=== PATIENT | female | born 1965 | race Caucasian/White ===

== ENCOUNTER 2018-01-23 15:06 | Inpatient (IN) | payer MEDICARE, MEDICAID ==
[2018-01-23] MEDS ORDERED: Sodium Chloride 0.9% 5 ML Syringe FLUSH PRN (15:15)
[2018-01-23] MEDS ORDERED: Ondansetron 4 MG/2 ML SDV IVPUSH PRN (15:32)
[2018-01-23] MEDS: cefTRIAXone 2 GM Vial IVPUSH SCH (16:45)
[2018-01-23 16:50] LABS: CHLORIDE,CL 103 mmol/L (98-115); SODIUM,NA 139 mmol/L (136-145)
[2018-01-23] MEDS ORDERED: Phenazopyridine 100 MG Tab PO PRN (17:16)
[2018-01-23] MEDS ORDERED: Acetaminophen 500 MG Tab PO PRN (17:44)
[2018-01-23] MEDS ORDERED: ALBUTEROL 108 MCG INH PRN (17:44)
[2018-01-23] MEDS ORDERED: Gabapentin 300 MG Cap PO PRN (17:54)
[2018-01-23] MEDS: Sodium Chloride 0.9% 1,000 ML IV SCH (17:59)
[2018-01-23] MEDS: Nicotine 7 MG/24 Hr Patch TRDERM SCH (18:36)
[2018-01-23] MEDS: Sertraline 50 MG Tab PO SCH (18:39)
[2018-01-23] MEDS ORDERED: Ketorolac 30 MG/ML SDV IVPUSH ONE (20:07)
[2018-01-23] MEDS ORDERED: Non-Formulary Medication 1 Each (Atorvastatin [Lipitor] 20 MG) PO SCH (21:00)
[2018-01-23] MEDS: ALPRAZolam 0.25 MG Tab PO PRN (21:35)
[2018-01-24] MEDS: Sodium Chloride 0.9% 1,000 ML IV SCH ×2 (02:06→14:32)
[2018-01-24] MEDS: Ketorolac 30 MG/ML SDV IVPUSH PRN ×4 (02:43→21:40)
[2018-01-24] MEDS ORDERED: CALCIUM CARBONATE 1500 MG PO SCH (07:30)
[2018-01-24] MEDS: Aspirin 81 MG Tab.EC PO SCH (08:29)
[2018-01-24] MEDS: Nicotine 7 MG/24 Hr Patch TRDERM SCH (08:30)
[2018-01-24] MEDS ORDERED: Non-Formulary Medication 1 Each (Cholecalciferol (Vitamin D3) [Vitamin D3] 1 TAB) PO SCH (09:00)
[2018-01-24] MEDS ORDERED: TERIPARATIDE 20 MCG SQ SCH (09:00)
--- NOTE | 2018-01-24 10:25 | PCM.PN ---
- General Info Date of Service: 01/24/18 Admission Dx/Problem (Free Text): Pt was admitted to the hospital from the clinic 01/23/18 with left lower quadrant abdominal pain radiating to the left flank area, nausea and decreased appetite. She had been treated for 3 days with Zpak just prior to that clinic visit. On admission her pain was getting worse. Stated the pain "felt like having a baby." [place] feverish at home but no measured temp. Urine Culture showed EColi > 100,000 colonies and WBC on 01/20/18 was 16.1 with left shift. She was admitted on IV rocephin 1 gm q 24 hrs. Throughout the evening the pain continued to get worse. CT of abdomen and pelvis showed Minimal prominence bilateral proximal to mid ureters with slight [place]-ureteral fat stranding. Findings suspicious for UTI. There were no obstructing stones. She was given gabapentin 300 mg x 1 without much relief, toradal 30 mg IV which she states did give relief. Subjective Update: This morning pt reports she is feeling much better. No further nausea. She is asking for diet advance. She reports she does continue with some left groin pain with some radiation to the left lateral abdomen. Functional Status: Reports: Pain Controlled, Tolerating Diet, Urinating (Pt reports she is voiding, but doesn't feel an urge to void.) - Review of Systems General: Reports: Other (appetite improved). Denies: Fever, Weakness Pulmonary: Reports: No Symptoms Cardiovascular: Reports: No Symptoms Gastrointestinal: Reports: Decreased Appetite (improved), Nausea (improved), Vomiting Genitourinary: Reports: No Symptoms. Denies: Dysuria (dysuria has resolved) Musculoskeletal: Reports: No Symptoms Neurological: Reports: No Symptoms Psychiatric: Reports: Anxiety (chronic anxiety for which she uses Xanax at ) - Patient Data Vitals - Most Recent: Last Vital Signs Temp 98.3 F 01/24/18 06:08 Pulse 63 01/24/18 06:08 Resp 18 01/24/18 06:08 BP 120/66 01/24/18 06:08 Pulse Ox 94 L 01/24/18 06:08 Weight - Most Recent: 175 lb 8 oz I&O - Last 24 Hours: Intake & Output 01/23/18 01/24/18 01/24/18 22:59 06:59 14:59 Intake Total 2269 796 Output Total 1150 300 Balance 1119 496 Imaging Impressions - Last 24 Hours: CT pelvis and abdomen: Minimal prominence of bilateral proximal to mid ureters with slight [place]-ureteral fat stranding. Findings suspicious for UTI. There were no obstructing stones. Lab Results Last 24 Hours: Laboratory Results - last 24 hr 01/23/18 01/23/18 01/23/18 Range/Units 15:25 16:25 16:25 WBC 12.0 H (5.0-10.0) 10^3/uL RBC 4.37 (3.80-5.50) 10^6/uL Hgb 14.2 (12.0-16.0) g/dL Hct 40.3 (37.0-47.0) % MCV 92.0 (82.0-92.0) fL MCH 32.5 H (27.0-31.0) pg MCHC 35.3 (32.0-36.0) g/dL RDW 12.9 (11.5-14.5) % Plt Count 238 (150-300) 10^3/uL MPV 7.7 (7.4-10.4) fL Neut % (Auto) 56.3 (50.0-70.0) % Lymph % (Auto) 34.0 (20.0-40.0) % [place] % (Auto) 3.8 (2.0-8.0) % Eos % (Auto) 5.3 H (1.0-3.0) % Baso % (Auto) 0.6 (0.0-1.0) % Neut # (Auto) 6.7 (2.5-7.0) 10^3/uL Lymph # (Auto) 4.1 H (1.0-4.0) 10^3/uL [place] # (Auto) 0.5 (0.1-0.8) 10^3/uL Eos # (Auto) 0.6 H (0.1-0.3) 10^3/uL Baso # (Auto) 0.1 (0.0-0.1) 10^3/uL ESR (0-20) mm/hr Sodium 139 (136-145) mmol/L Potassium 3.9 (3.3-5.3) mmol/L Chloride 103 (98-115) mmol/L Carbon Dioxide 27.4 (21.0-32.0) mmol/L BUN 11 (6-25) mg/dL Creatinine 0.80 (0.51-1.17) mg/dL Est Cr Clr Drug Dosing 79.08 mL/min Estimated GFR (MDRD) > 60 mL/min Glucose 88 (70-110) mg/dL Calcium 9.2 (8.7-10.3) mg/dL Total Bilirubin 0.3 (0.2-1.0) mg/dL AST 15 (15-37) U/L ALT 19 (12-78) U/L Alkaline Phosphatase 74 (46-116) IU/L Total Protein 7.4 (6.4-8.2) g/dL Albumin 3.59 (3.00-4.80) g/dL Specimen Type Urincc Urine Color Yellow (YELLOW) Urine Appearance Slightly cloudy H (CLEAR) Urine pH 5.0 (5.0-9.0) Ur Specific [place] <= 1.005 (1.005-1.030) Urine Protein Negative (NEGATIVE) mg/dL Urine Glucose (UA) Negative (NEGATIVE) mg/dL Urine Ketones Negative (NEGATIVE) mg/dL Urine Occult Blood Moderate H (NEGATIVE) Urine Nitrite Positive H (NEGATIVE) Urine Bilirubin Negative (NEGATIVE) Urine Urobilinogen 0.2 (0.2-1.0) E.U./dL Ur Leukocyte Esterase Small H (NEGATIVE) 01/23/18 01/24/18 Range/Units 16:25 07:00 WBC 7.7 (5.0-10.0) 10^3/uL RBC 4.28 (3.80-5.50) 10^6/uL Hgb 13.4 (12.0-16.0) g/dL Hct 39.6 (37.0-47.0) % MCV 92.6 H (82.0-92.0) fL MCH 31.2 H (27.0-31.0) pg MCHC 33.7 (32.0-36.0) g/dL RDW 12.9 (11.5-14.5) % Plt Count 204 (150-300) 10^3/uL MPV 8.2 (7.4-10.4) fL Neut % (Auto) 68.3 (50.0-70.0) % Lymph % (Auto) 17.0 L (20.0-40.0) % [place] % (Auto) 5.4 (2.0-8.0) % Eos % (Auto) 8.5 H (1.0-3.0) % Baso % (Auto) 0.8 (0.0-1.0) % Neut # (Auto) 5.2 (2.5-7.0) 10^3/uL Lymph # (Auto) 1.3 (1.0-4.0) 10^3/uL [place] # (Auto) 0.4 (0.1-0.8) 10^3/uL Eos # (Auto) 0.7 H (0.1-0.3) 10^3/uL Baso # (Auto) 0.1 (0.0-0.1) 10^3/uL ESR 30 H (0-20) mm/hr Sodium (136-145) mmol/L Potassium (3.3-5.3) mmol/L Chloride (98-115) mmol/L Carbon Dioxide (21.0-32.0) mmol/L BUN (6-25) mg/dL Creatinine (0.51-1.17) mg/dL Est Cr Clr Drug Dosing mL/min Estimated GFR (MDRD) mL/min Glucose (70-110) mg/dL Calcium (8.7-10.3) mg/dL Total Bilirubin (0.2-1.0) mg/dL AST (15-37) U/L ALT (12-78) U/L Alkaline Phosphatase (46-116) IU/L Total Protein (6.4-8.2) g/dL Albumin (3.00-4.80) g/dL Specimen Type Urine Color (YELLOW) Urine Appearance (CLEAR) Urine pH (5.0-9.0) Ur Specific [place] (1.005-1.030) Urine Protein (NEGATIVE) mg/dL Urine Glucose (UA) (NEGATIVE) mg/dL Urine Ketones (NEGATIVE) mg/dL Urine Occult Blood (NEGATIVE) Urine Nitrite (NEGATIVE) Urine Bilirubin (NEGATIVE) Urine Urobilinogen (0.2-1.0) E.U./dL Ur Leukocyte Esterase (NEGATIVE) Med Orders - Current: Current Medications Acetaminophen (Tylenol Extra Strength) 500 mg PO Q4HR PRN PRN Reason: Pain Alprazolam (Xanax) 0.5 mg PO Q8HR PRN PRN Reason: Anxiety Last Admin: 01/23/18 21:35 Dose: 0.5 mg Aspirin (Halfprin) 81 mg PO DAILY [facility] Last Admin: 01/24/18 08:29 Dose: 81 mg Ceftriaxone Sodium (Rocephin) 2 gm IVPUSH Q24H [facility] Last Admin: 01/23/18 16:45 Dose: 2 gm Gabapentin (Neurontin) 300 mg PO TID PRN PRN Reason: Pain Last Admin: 01/23/18 18:36 Dose: 300 mg Sodium Chloride (Normal Saline) 1,000 mls @ 80 mls/hr IV ASDIRECTED [facility] Last Admin: 01/24/18 02:06 Dose: 80 mls/hr Ketorolac Tromethamine (Toradol) 15 mg IVPUSH Q6H PRN PRN Reason: Pain Stop: 01/27/18 02:31 Last Admin: 01/24/18 08:28 Dose: 15 mg Nicotine (Habitrol) 7 mg TRDERM DAILY [facility] Last Admin: 01/24/18 08:30 Dose: 7 mg Non-Formulary Medication (Albuterol [Ventolin 2 Mg/5 Ml]) 108 mcg INH ASDIRECTED PRN PRN Reason: Shortness of Breath Ondansetron HCl (Zofran) 4 mg IVPUSH Q4H PRN PRN Reason: Nausea/Vomiting Phenazopyridine HCl (Pyridium) 100 mg PO BID PRN PRN Reason: bladder pain Stop: 01/24/18 23:59 Last Admin: 01/23/18 17:47 Dose: 100 mg Sertraline HCl (Zoloft) 50 mg PO BEDTIME [facility] Sodium Chloride (Syrex Flush) 5 ml FLUSH Q8HR PRN PRN Reason: Keep Vein Open Discontinued Medications Sodium Chloride (Normal Saline) 1,400 mls @ 999 mls/hr IV ASDIRECTED [facility] Stop: 01/23/18 17:00 Last Admin: 01/23/18 16:45 Dose: 999 mls/hr Ketorolac Tromethamine (Toradol) 30 mg IVPUSH ONETIME ONE Stop: 01/23/18 20:08 Last Admin: 01/23/18 20:47 Dose: 30 mg Non-Formulary Medication (Atorvastatin [Lipitor]) 20 mg PO BEDTIME [facility] Non-Formulary Medication (Calcium Carbonate [Calcium Carbonate]) 1,500 mg PO ACBREAKFAST [facility] Non-Formulary Medication (Cholecalciferol (Vitamin D3) [Vitamin D3]) 1 tab PO DAILY [facility] Non-Formulary Medication (Teriparatide [Forteo]) 20 mcg SQ DAILY [facility] Sertraline HCl (Zoloft) 50 mg PO DAILY [facility] Last Admin: 01/23/18 18:39 Dose: 50 mg - Problem List Review Problem List Initiated/Reviewed/Updated: Yes - My Orders Last 24 Hours: My Active Orders 01/23/18 17:44 ALPRAZolam [Xanax] 0.5 mg PO Q8HR PRN Acetaminophen [Tylenol Extra Strength] 500 mg PO Q4HR PRN Albuterol [Ventolin 2 MG/5 ML] 108 mcg INH ASDIRECTED PRN 01/23/18 17:54 Gabapentin [Neurontin] 300 mg PO TID PRN 01/23/18 18:00 Nicotine [Habitrol] 7 mg TRDERM DAILY 01/23/18 20:12 Strain Urine [RC] ASDIRECTED 01/23/18 20:45 Abdomen Pelvis wo Cont [CT] Routine 01/24/18 02:30 Ketorolac [Toradol] 15 mg IVPUSH Q6H PRN 01/24/18 09:00 Aspirin [Halfprin] 81 mg PO DAILY 01/24/18 21:00 Sertraline [Zoloft] 50 mg PO BEDTIME 01/24/18 Breakfast GI Soft Low Fiber [Soft Diet] [DIET] 01/24/18 Lunch [place] Diet [DIET] - Assessment Assessment:: Assessment/Plan 1. Acute pyelonephritis: EColi treated with Rocephin 1 gm IV q 24 hrs. Pt feeling much better. Nausea resolved. Voiding without dysuria. Does continue with left lower quadrant abdominal pain that is improving. Currently pain is managed with toradal and tylenol. 2. Smoker: Pt smokes about 5 cigarettes a day. She is on a nicoderm patch 7 mcg. She uses an albuterol inhaler prn. Pt is interested in quitting after hospital discharge. 3. Depression: continue zoloft 100 mg daily. 4. Insomnia with anxiety: May use Xanax prn at for insomnia 5. osteoporosis: hold forteo, calcium and vitamin D while in hospital for short term.
[2018-01-24] MEDS: Sertraline 50 MG Tab PO SCH (15:23)
[2018-01-24] MEDS: cefTRIAXone 2 GM Vial IVPUSH SCH (15:39)
[2018-01-24] MEDS ORDERED: Sertraline 50 MG Tab PO SCH (21:00)
[2018-01-24] MEDS: ALPRAZolam 0.25 MG Tab PO PRN (21:39)
[2018-01-25] MEDS: Sodium Chloride 0.9% 1,000 ML IV SCH (03:10)
[2018-01-25] MEDS: Aspirin 81 MG Tab.EC PO SCH (08:58)
[2018-01-25] MEDS: Nicotine 7 MG/24 Hr Patch TRDERM SCH (08:58)
[2018-01-25] MEDS: cefTRIAXone 2 GM Vial IVPUSH SCH (10:57)
--- NOTE | 2018-01-25 11:14 | PCM.DCSUM1 ---
Discharge Summary - Hospital Course HPI Initial Comments: Pt was admitted to the hospital from the clinic 01/23/18 with left lower quadrant abdominal pain radiating to the left flank area, nausea and decreased appetite. She had been treated for 3 days with Zpak just prior to that clinic visit. On admission her pain was getting worse. Stated the pain "felt like having a baby." [place] feverish at home but no measured temp. Urine Culture showed EColi > 100,000 colonies and WBC on 01/20/18 was 16.1 with left shift. She was admitted and started on IV rocephin 1 gm q 24 hrs. Throughout the evening the pain continued to get worse. CT of abdomen and pelvis showed: Minimal prominence bilateral proximal to mid ureters with slight [place]-ureteral fat stranding. Findings suspicious for UTI. There were no obstructing stones. She was given gabapentin 300 mg x 1 without much relief, toradal 30 mg IV which did give relief. Pt has improved and states she is ready to go home after 3 doses of IV rocephin. She has no further dysuria or nausea She reports the pain to left lower abdomen into left flank area with palpation continues but is mild at time of discharge. Urine is clear [place]. WBC WNL without neutrophilia. Pt reports every time she gets antibiotics she gets a yeast infection and needs diflucan before antibiotic treatment and after. She did take a diflucan prior to starting Zpak and has another dose at home. I advised her to use the diflucan only if she experiences any yeast symptoms. Pt is a smoker. She was on nicoderm patch while in the clinic and wants to continue with smoking cessation. Nicoderm patch #30 rx was sent to [facility] per pt request. Pt has depression for which she takes zoloft 100 mg daily. this was continued in the hospital She has Insomnia with anxiety and uses xanax at hs. Pt has osteoporosis. Forteo, calcium and vitamin D were held while in the hospital. Diagnosis: Stroke: No - Discharge Data Discharge Date: 01/25/18 Discharge Disposition: Home, Self-Care 01 Condition: Good - Patient Instructions Diet: Regular Diet as Tolerated Activity: As Tolerated Driving: May Drive Today Showering/Bathing: May Shower Notify Provider of: Fever, Increased Pain, Nausea and/or Vomiting - Discharge Plan Prescriptions/Med Rec: Cephalexin [Keflex] 500 mg PO TID #30 capsule Home Medications: Home Meds Aspirin [Adult Low Dose Aspirin EC] 81 mg PO DAILY 01/18/14 [History] atorvaSTATin [Lipitor] 20 mg PO BEDTIME 01/18/14 [History] ALPRAZolam [Xanax] 1 tab PO Q8HR PRN 01/23/18 [History] Acetaminophen 500 mg PO Q4HR PRN 01/23/18 [History] Albuterol [Ventolin 2 MG/5 ML] 108 mcg INH ASDIRECTED PRN 01/23/18 [History] Calcium Carbonate 1,500 mg PO ACBREAKFAST 01/23/18 [History] Cholecalciferol (Vitamin D3) [Vitamin D3] 1 tab PO DAILY 01/23/18 [History] Fluconazole [Diflucan] 1 tab PO DAILY 01/23/18 [History] Sertraline [Zoloft] 50 mg PO DAILY 01/23/18 [History] Teriparatide [Forteo] 20 mcg SQ DAILY 01/23/18 [History] Cephalexin [Keflex] 500 mg PO TID #30 capsule 01/25/18 [Rx] Nicotine [Habitrol] 7 mg TRDERM DAILY patch 01/25/18 [Rx] Ondansetron [Zofran] 4 mg IVPUSH Q4H PRN vial 01/25/18 [Rx] Patient Handouts: Urinary Tract Infection, Adult, Pyelonephritis, Adult, Easy- to-Read Referrals: Edgar Fall, GUEST SERVICES MANAGER [Primary Care Provider] - (follow up with PCP in one week) - General Info Date of Service: 01/25/18 Admission Dx/Problem (Free Text: Pt was admitted to the hospital from the clinic 01/23/18 with left lower quadrant abdominal pain radiating to the left flank area, nausea and decreased appetite. She had been treated for 3 days with Zpak just prior to that clinic visit. On admission her pain was getting worse. Stated the pain "felt like having a baby." [place] feverish at home but no measured temp. Urine Culture showed EColi > 100,000 colonies and WBC on 01/20/18 was 16.1 with left shift. She was started on IV rocephin 1 gm q 24 hrs on admission. Throughout the evening the pain continued to get worse. CT of abdomen and pelvis showed Minimal prominence bilateral proximal to mid ureters with slight [place]-ureteral fat stranding. Findings suspicious for UTI. There were no obstructing stones. Subjective Update: This morning pt reports she is feeling much better. No further nausea. No further dysuria Left lower quadrant pain with palpation continues but is greatly improved. Functional Status: Reports: Pain Controlled, Tolerating Diet, Ambulating, Urinating - Review of Systems General: Reports: No Symptoms. Denies: Fever HEENT: Reports: No Symptoms Pulmonary: Reports: No Symptoms Cardiovascular: Reports: No Symptoms Gastrointestinal: Reports: No Symptoms Genitourinary: Reports: No Symptoms, Other (left lower abdomen into flank pain nearly resolved). Denies: Dysuria, Frequency, Burning, Pain, Urgency, Incontinence, Hematuria, Retention Skin: Reports: No Symptoms Neurological: Reports: No Symptoms Psychiatric: Reports: Other (chronic depression managed with zoloft) - Patient Data Vitals - Most Recent: Last Vital Signs Temp 97.6 F 01/25/18 06:14 Pulse 53 L 01/25/18 08:57 Resp 18 01/25/18 06:14 BP 134/82 01/25/18 08:57 Pulse Ox 96 01/25/18 06:14 Weight - Most Recent: 175 lb 8 oz I&O - Last 24 hours: Intake & Output 01/24/18 01/25/18 01/25/18 22:59 06:59 14:59 Intake Total 1027 786 Output Total 450 600 Balance 577 186 Lab Results - Last 24 hrs: Laboratory Results - last 24 hr 01/25/18 Range/Units 07:05 WBC 8.1 (5.0-10.0) 10^3/uL RBC 4.03 (3.80-5.50) 10^6/uL Hgb 12.6 (12.0-16.0) g/dL Hct 37.5 (37.0-47.0) % MCV 92.9 H (82.0-92.0) fL MCH 31.3 H (27.0-31.0) pg MCHC 33.7 (32.0-36.0) g/dL RDW 12.7 (11.5-14.5) % Plt Count 205 (150-300) 10^3/uL MPV 8.1 (7.4-10.4) fL Neut % (Auto) 64.2 (50.0-70.0) % Lymph % (Auto) 21.9 (20.0-40.0) % [place] % (Auto) 5.0 (2.0-8.0) % Eos % (Auto) 8.6 H (1.0-3.0) % Baso % (Auto) 0.3 (0.0-1.0) % Neut # (Auto) 5.2 (2.5-7.0) 10^3/uL Lymph # (Auto) 1.8 (1.0-4.0) 10^3/uL [place] # (Auto) 0.4 (0.1-0.8) 10^3/uL Eos # (Auto) 0.7 H (0.1-0.3) 10^3/uL Baso # (Auto) 0.0 (0.0-0.1) 10^3/uL Med Orders - Current: Current Medications Acetaminophen (Tylenol Extra Strength) 500 mg PO Q4HR PRN PRN Reason: Pain Alprazolam (Xanax) 0.5 mg PO Q8HR PRN PRN Reason: Anxiety Last Admin: 01/24/18 21:39 Dose: 0.5 mg Aspirin (Halfprin) 81 mg PO DAILY [facility] Last Admin: 01/25/18 08:58 Dose: 81 mg Ceftriaxone Sodium (Rocephin) 2 gm IVPUSH Q24H [facility] Last Admin: 01/25/18 10:57 Dose: 2 gm Gabapentin (Neurontin) 300 mg PO TID PRN PRN Reason: Pain Last Admin: 01/23/18 18:36 Dose: 300 mg Sodium Chloride (Normal Saline) 1,000 mls @ 80 mls/hr IV ASDIRECTED [facility] Last Admin: 01/25/18 03:10 Dose: 80 mls/hr Ketorolac Tromethamine (Toradol) 15 mg IVPUSH Q6H PRN PRN Reason: Pain Stop: 01/27/18 02:31 Last Admin: 01/24/18 21:40 Dose: 15 mg Nicotine (Habitrol) 7 mg TRDERM DAILY [facility] Last Admin: 01/25/18 08:58 Dose: 7 mg Non-Formulary Medication (Albuterol [Ventolin 2 Mg/5 Ml]) 108 mcg INH ASDIRECTED PRN PRN Reason: Shortness of Breath Ondansetron HCl (Zofran) 4 mg IVPUSH Q4H PRN PRN Reason: Nausea/Vomiting Last Admin: 01/25/18 06:22 Dose: 4 mg Sertraline HCl (Zoloft) 50 mg PO BEDTIME [facility] Last Admin: 01/24/18 22:21 Dose: 50 mg Sodium Chloride (Syrex Flush) 5 ml FLUSH Q8HR PRN PRN Reason: Keep Vein Open Discontinued Medications Sodium Chloride (Normal Saline) 1,400 mls @ 999 mls/hr IV ASDIRECTED [facility] Stop: 01/23/18 17:00 Last Admin: 01/23/18 16:45 Dose: 999 mls/hr Ketorolac Tromethamine (Toradol) 30 mg IVPUSH ONETIME ONE Stop: 01/23/18 20:08 Last Admin: 01/23/18 20:47 Dose: 30 mg Non-Formulary Medication (Atorvastatin [Lipitor]) 20 mg PO BEDTIME [facility] Non-Formulary Medication (Calcium Carbonate [Calcium Carbonate]) 1,500 mg PO ACBREAKFAST [facility] Non-Formulary Medication (Cholecalciferol (Vitamin D3) [Vitamin D3]) 1 tab PO DAILY [facility] Non-Formulary Medication (Teriparatide [Forteo]) 20 mcg SQ DAILY [facility] Phenazopyridine HCl (Pyridium) 100 mg PO BID PRN PRN Reason: bladder pain Stop: 01/24/18 23:59 Last Admin: 01/23/18 17:47 Dose: 100 mg Sertraline HCl (Zoloft) 50 mg PO DAILY [facility] Last Admin: 01/24/18 15:23 Dose: Not Given - Exam Quality Assessment: Denies: Supplemental Oxygen General: Reports: Alert, Oriented, Cooperative, No Acute Distress Lungs: Reports: Clear to Auscultation, Normal Respiratory Effort Cardiovascular: Reports: Regular Rate, Regular Rhythm GI/Abdominal Exam: Soft, No Distention, Other (mild tenderness with palpation of left lower quadrant radiating to left lateral abdomen) Extremities: No Pedal Edema Neurological: Reports: No New Focal Deficit Psy/Mental Status: Reports: Alert, Normal Affect, Normal Mood
== END 2018-01-25 11:25 | disposition home or self-care (01) | DRG 690 ==
LOC: KA.MS 15:06
PROVIDERS: ADMIT Nurse Practitioner Family; ATTEND Nurse Practitioner Family
DX: N10 Acute pyelonephritis (principal); F17.210 Nicotine dependence, cigarettes, uncomplicated; F32.9 Major depressive disorder, single episode, unspecified; G47.00 Insomnia, unspecified; F41.9 Anxiety disorder, unspecified; M81.0 Age-related osteoporosis without current pathological fracture; M19.90 Unspecified osteoarthritis, unspecified site; I73.9 Peripheral vascular disease, unspecified; E78.5 Hyperlipidemia, unspecified; Z88.1 Allergy status to other antibiotic agents; Z88.2 Allergy status to sulfonamides; Z88.5 Allergy status to narcotic agent; Z91.013 Allergy to seafood; Z79.82 Long term (current) use of aspirin; Z79.899 Other long term (current) drug therapy
CPT/HCPCS: 36415; 74176; 80053; 81003; 85025; 85651; A9270-GY; J0696; J1885; J2405; J7030

== ENCOUNTER 2019-09-29 19:34 | Observation (INO) | payer MEDICARE, MEDICAID ==
[2019-09-29 18:32] LABS: ANION GAP 16.2 mmol/L (5-15); CHLORIDE,CL 104 mmol/L (98-115); SODIUM,NA 143 mmol/L (136-145)
[2019-09-29] MEDS ORDERED: Atropine 0.1 MG/ML 10 ML Syringe IVPUSH PRN (19:38)
[2019-09-29] MEDS ORDERED: EPINEPHrine 1:10,000 1 MG/10 ML Syringe IVPUSH PRN (19:38)
[2019-09-29] MEDS ORDERED: Sodium Chloride 0.9% 10 ML Syringe FLUSH PRN (19:38)
[2019-09-29] MEDS ORDERED: Lidocaine 2% 100 MG/5 ML Syringe IVPUSH PRN (19:38)
[2019-09-29] MEDS ORDERED: Nitroglycerin 0.4 MG Tab.SL SL PRN (19:38)
[2019-09-29] MEDS ORDERED: Acetaminophen 500 MG Tab PO PRN (20:32)
[2019-09-29] MEDS ORDERED: Albuterol/Ipratropium 3.0-0.5 MG/3 ML Neb Soln NEB PRN (20:32)
[2019-09-29] MEDS ORDERED: Rosuvastatin 10 MG Tab PO SCH (21:00)
[2019-09-29] MEDS ORDERED: ALPRAZolam 0.25 MG Tab PO PRN (21:44)
[2019-09-29] MEDS ORDERED: Albuterol 8 GM Inhaler INH PRN (21:50)
[2019-09-29] MEDS: Calcium Carbonate 500 MG Tab.Chew PO SCH (23:00)
[2019-09-30] MEDS: Calcium Carbonate 500 MG Tab.Chew PO SCH (08:18)
[2019-09-30] MEDS ORDERED: TERIPARATIDE 20 MCG SQ SCH (09:00)
[2019-09-30] MEDS ORDERED: VILAZODONE 20 MG PO SCH (09:00)
[2019-09-30] MEDS ORDERED: Aspirin 81 MG Tab.EC PO SCH (09:00)
[2019-09-30] MEDS ORDERED: Multivitamins with Minerals/Iron/Folic Acid/Lycopene Tab PO SCH (09:00)
[2019-09-30] MEDS ORDERED: Cyanocobalamin (Vitamin B12) 500 MCG Tab PO SCH (09:00)
[2019-09-30] MEDS ORDERED: Cholecalciferol (Vitamin D3) 25 MCG Tab PO SCH (09:00)
--- NOTE | 2019-09-30 10:06 | PCM.DCSUM1 ---
Discharge Summary - Hospital Course Diagnosis: Stroke: No - Discharge Data Discharge Date: 09/30/19 Discharge Disposition: Home, Self-Care 01 Condition: Good - Referral to Home Health Primary Care Physician: Luz Harper NP - Patient Instructions Activity: As Tolerated Driving: May Drive Today Showering/Bathing: May Shower Notify Provider of: Increased Pain Other/Special Instructions: --Report any chest pain, lightheadedness. --I have placed a referral for Cardiology in [place], they will call you. --Echocardiogram /heart ultrasound and [facility]. --Smoking cessation very important as possible non-cardiac reasons for PVCs - Discharge Plan *PRESCRIPTION DRUG MONITORING PROGRAM REVIEWED*: Yes *COPY OF PRESCRIPTION DRUG MONITORING REPORT IN PATIENT LEVI: No (reviewed in EPIC; patient other EMR) Prescriptions/Med Rec: ALPRAZolam [Xanax] 1 mg PO Q8HR PRN #30 tablet PRN Reason: Anxiety Home Medications: Home Meds Aspirin [Adult Low Dose Aspirin EC] 162 mg PO DAILY 01/18/14 [History] Acetaminophen 500 - 1,000 mg PO Q4HR PRN 01/23/18 [History] Albuterol [Ventolin 2 MG/5 ML] 108 mcg INH ASDIRECTED PRN 01/23/18 [History] Calcium Carbonate 750 mg PO BID 01/23/18 [History] Cholecalciferol (Vitamin D3) [Vitamin D3] 1 tab PO DAILY 01/23/18 [History] Teriparatide [Forteo] 20 mcg SQ DAILY 01/23/18 [History] Albuterol/Ipratropium [DuoNeb 3.0-0.5 MG/3 ML] 3 ml NEB QID PRN 09/29/19 [ History] Cyanocobalamin (Vitamin B-12) [B-12] 1 tab PO DAILY 09/29/19 [History] Diclofenac Sodium 2 g TOP BID PRN 09/29/19 [History] Evolocumab [Repatha Sureclick] 140 mg SQ ASDIRECTED 09/29/19 [History] Fluticasone Propionate [Flonase] 1 spray TRISTON ASDIRECTED PRN 09/29/19 [History] Multivit-Min/Iron/Folic/Lutein [Multivitamin Women 50 Plus Tab] 1 tab PO DAILY 09/29/19 [History] Rosuvastatin Calcium 20 mg PO QPM 09/29/19 [History] Vilazodone [Viibryd] 20 mg PO DAILY 09/29/19 [History] ALPRAZolam [Xanax] 1 mg PO Q8HR PRN #30 tablet 09/30/19 [Rx] Referrals: Edgar Fall, HOBBER [Nurse Practitioner] - (next week anytime ) - Discharge Summary/Plan Comment DC Time >30 min.: Yes Discharge Summary/Plan Comment: Final diagnosis --Chest wall pain, non-specific, suggest MSK etiology --Sinus node dysfunction --PVCs, unifocal, bigeminy --Vascular disease --Tobacco dependency Chronic conditions --PVD- history of bilateral lower extremity angiogram and extensive intervention outlined in surgical history. Follow-up with interventional IR on with normal ABIs with exercise normal at rest with minimal if any decompensation post 5 minutes on the treadmill. ASA 162mg daily. --HLD- on crestor and Repatha --Osteoporosis- last DEXA october 2016. Osteoporosis of left femoral neck T score -2.8. History of compression injury and S/p Vertebroplasty of L3. On forteo on supplemental calcium and vitamin D. --Major depressive disorder, PTSD, and MARTHA- on Viibryd. Xanax PRN. --Bilateral Carotid artery disease. --Obesity. History summary Brandi is a 54-year-old female who is well-known to me was admitted into observation from [facility] due to chest pain and chest wall rib pain. Was admitted to rule out [facility]. Patient stated that night before she was trying to shut the door in her house when she pushed the door shut she felt like something "hit the left ribs." She does not think there was actually direct trauma but states it felt like there was. In the clinic when she was seen she did noted severe left rib pain, below the left breast, and chest wall pain that was reproducible on movement. She is also complained of some chest palpitations. She has noted intermittent increased shortness of breath since it happened and states it is hard to breath at times. Does have a history of high anxiety with history of PTSD and family dynamics in which her granddaughter had moved out of the state of her has just returned back. Patient does have osteoporosis and I have placed her on Forteo in which she continues to take. She does have significant peripheral vascular disease and is on PCSK9 along with statin therapy. 2 years ago I did have her placed on Holter monitor due to concerns of PVCs. She had no headache, dizziness, or lightheadedness. Patient is current smoker Pertinent clinical findings/work-up X-ray ribs, Official: Visualized lungs clear. No discrete rib fracture but low- dose technique limits evaluation. Subtle lucency marked with arrow on the oblique views could be tissue overlap as extends beyond the cortex and cannot be confirmed on other views. No pneumothorax. Hospital course Patient's overnight stay was quite uneventful however she was anxious the morning on rounds and strongly desired to be discharged. She no longer had any pains in her chest nor did has she had palpitations. Viewed overnight telemetry strips, frequent unifocal PVCs with evidence of trigeminy and bigeminy noted. No bradycardia, heart rate 70s 80s all night, no chest palpitations noted by patient. Troponin levels trended to normal. Last TSH April normal, Medication changes/adjustments upon discharge None Disposition/overall plan --Patient will be discharged from observation to home today. --Echocardiogram [facility], scheduled --Cardiology referral placed; likely candidate for ZIO Patch --Smoking cessation very important as possible non-cardiac reasons for PVCs --Will work up for possible PINO --TSH added to labs - General Info Functional Status: Reports: Pain Controlled, Tolerating Diet, Ambulating. Denies: New Symptoms - Review of Systems General: Denies: Fever, Weakness, Fatigue HEENT: Reports: No Symptoms Pulmonary: Reports: No Symptoms Cardiovascular: Reports: No Symptoms Gastrointestinal: Reports: No Symptoms Genitourinary: Reports: No Symptoms Musculoskeletal: Reports: No Symptoms Psychiatric: Reports: Agitation - Patient Data Vitals - Most Recent: Last Vital Signs Temp 95.9 F L 09/30/19 06:40 Pulse 78 09/30/19 06:40 Resp 18 09/30/19 06:40 BP 102/66 09/30/19 06:40 Pulse Ox 96 09/30/19 06:40 Weight - Most Recent: 185 lb 3 oz Lab Results - Last 24 hrs: Laboratory Results - last 24 hr 09/29/19 09/30/19 Range/Units 22:03 07:10 Troponin I 0.05 0.05 (0.00-0.070) ng/mL Med Orders - Current: Current Medications Acetaminophen (Tylenol Extra Strength) 500 - 1,000 mg PO Q8H PRN PRN Reason: Pain Last Admin: 09/29/19 23:01 Dose: 1,000 mg Albuterol (Ventolin Hfa) 0 gm INH Q4H PRN PRN Reason: Shortness of Breath/Wheezing Albuterol/Ipratropium (Duoneb 3.0-0.5 Mg/3 Ml) 3 ml NEB QID PRN PRN Reason: Shortness of Breath Alprazolam (Xanax) 1 mg PO Q8H PRN PRN Reason: Anxiety Last Admin: 09/29/19 23:01 Dose: 1 mg Aspirin (Halfprin) 162 mg PO DAILY [facility] Last Admin: 09/30/19 08:17 Dose: 162 mg Atropine Sulfate (Atropine 0.1 Mg/Ml) 0 mg IVPUSH ASDIRECTED PRN PRN Reason: Heart. Calcium Carbonate/Glycine (Tums) 750 mg PO BID [facility] Last Admin: 09/30/19 08:18 Dose: 750 mg Cholecalciferol (Vitamin D3) 50 mcg PO DAILY [facility] Last Admin: 09/30/19 08:17 Dose: 50 mcg Cyanocobalamin (Vitamin B12) 1,000 mcg PO DAILY [facility] Last Admin: 09/30/19 08:17 Dose: 1,000 mcg Epinephrine HCl (Epinephrine 1:10,000) 1 mg IVPUSH ASDIRECTED PRN PRN Reason: Heart. Lidocaine HCl (Xylocaine 2%) 0 mg IVPUSH ASDIRECTED PRN PRN Reason: Heart. Multivitamins/Minerals (Centrum) 1 tab PO DAILY [facility] Last Admin: 09/30/19 08:18 Dose: 1 tab Nitroglycerin (Nitrostat) 0.4 mg SL ASDIRECTED PRN PRN Reason: Heart. Non-Formulary Medication (Teriparatide [Forteo]) 20 mcg SQ DAILY [facility] Non-Formulary Medication (Vilazodone [Viibryd]) 20 mg PO DAILY [facility] Rosuvastatin Calcium (Crestor) 20 mg PO QPM [facility] Last Admin: 09/29/19 23:00 Dose: 20 mg Sodium Chloride (Saline Flush) 10 ml FLUSH Q8HR PRN PRN Reason: keep vein open - Exam Quality Assessment: Denies: Supplemental Oxygen General: Reports: Alert, Oriented, Mild Distress Neck: Reports: Supple Lungs: Reports: Clear to Auscultation, Normal Respiratory Effort Cardiovascular: Reports: Regular Rate, Bradycardia GI/Abdominal Exam: Normal Bowel Sounds, Soft (Female) Exam: Deferred Back Exam: Denies: CVA Tenderness (L), CVA Tenderness (R) Psy/Mental Status: Reports: Alert, Anxious
== END 2019-09-30 11:30 | disposition home or self-care (01) ==
LOC: KA.MS 19:34
PROVIDERS: ADMIT Nurse Practitioner Family; ATTEND Family Medicine
DX: R07.89 Other chest pain (principal); I49.5 Sick sinus syndrome; I49.3 Ventricular premature depolarization; R07.81 Pleurodynia; R06.02 Shortness of breath; R00.2 Palpitations; J44.9 Chronic obstructive pulmonary disease, unspecified; I99.9 Unspecified disorder of circulatory system; E78.49 Other hyperlipidemia; I73.9 Peripheral vascular disease, unspecified; M81.0 Age-related osteoporosis without current pathological fracture; F33.1 Major depressive disorder, recurrent, moderate; F43.10 Post-traumatic stress disorder, unspecified; F41.1 Generalized anxiety disorder; I65.23 Occlusion and stenosis of bilateral carotid arteries; M19.90 Unspecified osteoarthritis, unspecified site; F17.200 Nicotine dependence, unspecified, uncomplicated; E66.9 Obesity, unspecified; Z68.30 Body mass index [BMI] 30.0-30.9, adult; Z79.51 Long term (current) use of inhaled steroids; Z79.82 Long term (current) use of aspirin; Z79.899 Other long term (current) drug therapy; Z88.5 Allergy status to narcotic agent; Z88.2 Allergy status to sulfonamides; Z91.013 Allergy to seafood; Z88.1 Allergy status to other antibiotic agents; Z98.890 Other specified postprocedural states
CPT/HCPCS: 36415; 80048; 83735; 84443; 84484; 85025; 85651; A9270; G0378

== ENCOUNTER 2020-07-27 17:44 | Emergency (ER) | payer MEDICARE, MEDICAID ==
[2020-07-27 18:48] LABS: ANION GAP 13.7 mmol/L (5-15); CHLORIDE,CL 102 mmol/L (98-115); SODIUM,NA 139 mmol/L (136-145)
--- NOTE | 2020-07-27 18:56 | CR ---
[id number] RAD/RAD Chest PA or AP 1V EXAM: RAD Chest PA or AP 1V INDICATION: CHEST PRESSURE. COMPARISON: None. DISCUSSION: Cardiomediastinal silhouette is normal in size and contour. No infiltrate, effusion, pneumothorax, or edema. Pulmonary hyperinflation. IMPRESSION: No acute cardiopulmonary abnormality. Kurt Estevez DO 07/27/20 0414 Thank you for allowing us to participate in the care of your patient.
[2020-07-27] MEDS ORDERED: Albuterol/Ipratropium 3.0-0.5 MG/3 ML Neb Soln NEB ONE (19:26)
--- NOTE | 2020-07-27 19:30 | EDM.PDOC ---
ED HPI GENERAL MEDICAL PROBLEM - General Chief Complaint: Respiratory Problem Stated Complaint: SHORTNESS OF BREATH Time Seen by Provider: 07/27/20 18:05 Source of Information: Reports: Patient, RN History Limitations: Reports: No Limitations - History of Present Illness INITIAL COMMENTS - FREE TEXT/NARRATIVE: 55-year-old female presents emergency room with complaints of burning chest pressure and shortness of breath. She was seen in the last 48 hours by her medical provider and started on a oral steroid for bronchitis. She has been doing an albuterol inhaler but states that she does not have any of the stuff necessary for her nebulizers at home tubing or medication. She is a current smoker has been for many years known history for COPD. She feels sweaty has not been running fevers. She denies any nausea or vomiting. No productive cough. She had a rapid Covid test at her visit then was negative. She was at home alone. She called the clinic today complaining of chest pressure that that she has been having as well as burning and they recommended that she be evaluated in the emergency room. Onset: Gradual Onset Date: 07/25/20 Duration: Day(s):, Constant Location: Reports: Chest Quality: Reports: Burning Severity: Moderate Improves with: Reports: None Worsens with: Reports: None Associated Symptoms: Reports: Shortness of Breath. Denies: Chest Pain, Cough, Fever/Chills, Nausea/Vomiting Treatments ORDER ANALYST: Reports: Other (see below) (steroids oral ) Chest Pain Score (Numeric/FACES): 4 - Related Data Allergies Allergy/AdvReac Type Severity Reaction Status Date / Time oyster extract Allergy Severe Difficulty Verified 07/27/20 19:13 Breathing amoxicillin Allergy Mild Nausea Verified 07/27/20 19:13 codeine Allergy Unknown Cannot Verified 07/27/20 19:13 Remember Sulfa (Sulfonamide Allergy Cannot Verified 07/27/20 19:13 Antibiotics) Remember Home Meds: Home Meds Aspirin [Adult Low Dose Aspirin EC] 162 mg PO DAILY 01/18/14 [History] Acetaminophen 500 - 1,000 mg PO Q4HR PRN 01/23/18 [History] Albuterol [Ventolin 2 MG/5 ML] 2 puff INH Q4H PRN 01/23/18 [History] Calcium Carbonate 1,968.75 mg PO BID 01/23/18 [History] Cholecalciferol (Vitamin D3) [Vitamin D3] 1 tab PO DAILY 01/23/18 [History] Teriparatide [Forteo] 20 mcg SQ DAILY 01/23/18 [History] Albuterol/Ipratropium [DuoNeb 3.0-0.5 MG/3 ML] 3 ml NEB QID PRN 09/29/19 [History] Cyanocobalamin (Vitamin B-12) [B-12] 1 tab PO DAILY 09/29/19 [History] Diclofenac Sodium 2 g TOP BID PRN 09/29/19 [History] Evolocumab [Repatha Sureclick] 140 mg SQ ASDIRECTED 09/29/19 [History] Fluticasone Propionate [Flonase] 1 spray TRISTON BID PRN 09/29/19 [History] Multivit-Min/Iron/Folic/Lutein [Multivitamin Women 50 Plus Tab] 1 tab PO DAILY 09/29/19 [History] Rosuvastatin Calcium 20 mg PO QPM 09/29/19 [History] Vilazodone [Viibryd] 20 mg PO DAILY 09/29/19 [History] ALPRAZolam [Xanax] 1 mg PO Q8HR PRN 07/27/20 [History] methylPREDNISolone [Methylprednisolone] 4 mg PO ASDIRECTED 07/27/20 [History] Past Medical History HEENT History: Reports: None Cardiovascular History: Reports: High Cholesterol, Stents Other Cardiovascular History: bilateral leg stents in iliac arteies. Hx. of pericarditis Respiratory History: Reports: Asthma, COPD Gastrointestinal History: Reports: Colon Polyp, Irritable Bowel Syndrome, Other (See Below) Other Gastrointestinal History: mass removal colon mass pre-cancer 2015 Genitourinary History: Reports: Pyelonephritis, Urinary Incontinence, UTI, Recurrent, Other (See Below) Other Genitourinary History: bladder tag when pat. was 26 years old [employer]IST History: Reports: Endometriosis, Musculoskeletal History: Reports: Back Pain, Chronic, Fracture, Osteoarthritis, Osteoporosis Other Musculoskeletal History: Compression fx L3/L4 Neurological History: Reports: Migraines, Neuropathy, Peripheral Psychiatric History: Reports: Anxiety, Depression, Panic Attack Endocrine/Metabolic History: Reports: Osteoporosis, Vitamin D Deficiency Hematologic History: Reports: Anemia, B12 Deficiency Other Hematologic History: Anemia as a child Oncologic (Cancer) History: Reports: None - Infectious Disease History Infectious Disease History: Reports: Chicken Pox Other Infectious Disease History: pat. had a form of hepatitis as a child but does not remember - Past Surgical History HEENT Surgical History: Reports: Adenoidectomy, Polypectomy, Tonsillectomy Respiratory Surgical History: Reports: None GI Surgical History: Reports: Colonoscopy, Polypectomy Female Surgical History: Reports: Breast Biopsy, Hysterectomy Other Female Surgeries/Procedures: Right breast lumpectomy 1980s; Hysterectomy 27yrs Endocrine Surgical History: Reports: None Neurological Surgical History: Reports: Vertebroplasty Musculoskeletal Surgical History: Reports: Other (See Below) Other Musculoskeletal Surgeries/Procedures:: back surgery; ruptured disc Oncologic Surgical History: Reports: Lumpectomy Dermatological Surgical History: Reports: None Social & Family History - Family History Family Medical History: No Pertinent Family History Cardiac: Reports: [place], Other (See Below) Other Cardiac Family History: mother from [place] Dermatologic: Reports: None Oncologic: Reports: Bladder, Lung Other Oncologic Family History: dad of lung cancer, brother bladder cancer - Tobacco Use Tobacco Use Status *Q: Current Every Day Tobacco User Years of Tobacco use: 40 Packs/Tins Daily: 0.2 - Caffeine Use Caffeine Use: Reports: Coffee, Energy Drinks Other Caffeine Use: coffee 1 cup a day - Recreational Drug Use Recreational Drug Use: Yes Recreational Drug Type: Reports: Marijuana/Hashish Recreational Drug Use Frequency: Rarely Recreational Drug Last Use: 3 months ago ED ROS GENERAL - Review of Systems Review Of Systems: See Below Constitutional: Denies: Fever, Chills, Diaphoresis HEENT: Reports: No Symptoms Respiratory: Reports: Shortness of Breath. Denies: Cough, Hemoptysis Cardiovascular: Denies: Chest Pain, Lightheadedness, Palpitations Endocrine: Reports: No Symptoms GI/Abdominal: Reports: No Symptoms : Reports: No Symptoms Musculoskeletal: Reports: No Symptoms Skin: Reports: No Symptoms Neurological: Reports: No Symptoms Psychiatric: Reports: Anxiety Hematologic/Lymphatic: Reports: No Symptoms Immunologic: Reports: No Symptoms ED EXAM, GENERAL - Physical Exam Exam: See Below Free Text/Narrative:: We will aged female nontoxic-appearing. No presentable respiratory distress. She is conversive without increased shortness of breath. Exam Limited By: No Limitations General Appearance: Alert, WD/WN, No Apparent Distress Eye Exam: Bilateral Eye: EOMI Ears: Hearing Grossly Normal Nose: Normal Inspection Throat/Mouth: Normal Voice, No Airway Compromise Head: Atraumatic, Normocephalic Neck: Normal Inspection, Supple Respiratory/Chest: No Respiratory Distress, No Accessory Muscle Use, Decreased Breath Sounds Cardiovascular: Normal Peripheral Pulses, Regular Rate, Rhythm, No Murmur Peripheral Pulses: 2+: Carotid (L), Carotid (R) GI/Abdominal: Soft, Non-Tender Back Exam: Normal Inspection Extremities: Normal Inspection Neurological: Alert, Oriented, No Motor/Sensory Deficits Psychiatric: Normal Affect, Normal Mood Skin Exam: Warm, Dry, Intact Lymphatic: No Adenopathy #1 Interpretation EKG Date: 07/27/20 Time: 18:27 Rhythm: NSR Rate (Beats/Min): 73 [place]: Normal P-Wave: Present QRS: Normal ST-T: Normal QT: Normal Comparison: NA - No Prior EKG EKG Interpretation Comments: Normal sinus rhythm normal ECG Course - Vital Signs Last Recorded V/S: Last Vital Signs Temp 98.3 F 07/27/20 18:53 Pulse 70 07/27/20 18:53 Resp 16 07/27/20 18:53 BP 160/93 H 07/27/20 18:53 Pulse Ox 95 07/27/20 18:53 - Orders/Labs/Meds Orders: Active Orders 24 hr Category Date Time Status EKG Documentation Completion [RC] ASDIRECTED Care 07/27/20 18:19 Active EKG 12 Lead [EK] Stat Ther 07/27/20 18:19 Ordered Labs: Laboratory Tests 07/27/20 07/27/20 Range/Units 18:20 18:20 WBC 16.10 H (5.00-10.00) 10^3/uL RBC 4.89 (3.80-5.50) 10^6/uL Hgb 15.3 (12.0-16.0) g/dL Hct 45.2 (37.0-47.0) % MCV 92.4 H (82.0-92.0) fL MCH 31.3 H (27.0-31.0) pg MCHC 33.8 (32.0-36.0) g/dL RDW 12.8 (11.5-14.5) % Plt Count 254 (150-400) 10^3/uL MPV 10.3 (7.4-10.4) fL Immature Gran % (Auto) 0.4 (0.0-5.0) % Neut % (Auto) 77.0 H (50.0-70.0) % Lymph % (Auto) 18.6 L (20.0-40.0) % [place] % (Auto) 3.7 (2.0-8.0) % Eos % (Auto) 0.2 L (1.0-3.0) % Baso % (Auto) 0.1 (0.0-1.0) % Neut # (Auto) 12.40 H (2.50-7.00) 10^3/uL Lymph # (Auto) 2.99 (1.00-4.00) 10^3/uL [place] # (Auto) 0.60 (0.10-0.80) 10^3/uL Eos # (Auto) 0.04 L (0.10-0.30) 10^3/uL Baso # (Auto) 0.01 (0.00-0.10) 10^3/uL Immature Gran # (Auto) 0.06 (0.00-0.50) 10^3/uL Sodium 139 (136-145) mmol/L Potassium 3.6 (3.3-5.3) mmol/L Chloride 102 (98-115) mmol/L Carbon Dioxide 26.9 (21.0-32.0) mmol/L Anion Gap 13.7 (5-15) mmol/L BUN 13 (6-25) mg/dL Creatinine 0.83 (0.51-1.17) mg/dL Est Cr Clr Drug Dosing 70.85 mL/min Estimated GFR (MDRD) > 60 mL/min Glucose 104 H (75 - 99) mg/dL Calcium 9.5 (8.7-10.3) mg/dL Total Bilirubin 0.3 (0.2-1.0) mg/dL AST 12 L (15-37) U/L ALT 19 (12-78) U/L Alkaline Phosphatase 75 (46-116) IU/L Troponin I < 0.04 (0.00-0.070) ng/mL Total Protein 8.1 (6.4-8.2) g/dL Albumin 4.25 (3.00-4.80) g/dL - Radiology Interpretation Free Text/Narrative:: Chest x-ray Discussion: Cardiomediastinal silhouette is normal in size and contour. No infiltrate, effusion, pneumothorax, or edema. Pulmonary hyperinflation Impression: No acute cardiopulmonary abnormality - Re-Assessments/Exams Free Text/Narrative Re-Assessment/Exam: 07/27/20 19:50 Peak flow prior to a DuoNeb was 220. Post duo nebulizer peak flow was 240. She notes immediate improvement with regards to the nebulizer treatments. Free Text/Narrative Re-Assessment/Exam: 07/27/20 20:04 Has improvement of her airway bilaterally there is some mild expiratory wheezing noted in the lower bases. Departure - Departure Time of Disposition: 20:05 Disposition: Home, Self-Care 01 Condition: Good Clinical Impression: Bronchitis COPD (chronic obstructive pulmonary disease) Qualifiers: COPD type: COPD with acute exacerbation Qualified Code(s): J44.1 - Chronic obstructive pulmonary disease with (acute) exacerbation - Discharge Information Referrals: Luz Harper [employer] SCI[employer] PROFESSOR [Primary Care Provider] - Sepsis Event Note (ED) - Evaluation Sepsis Screening Result: No Definite Risk - Focused Exam Vital Signs: Vital Signs Temp Pulse Resp BP Pulse Ox 07/27/20 18:53 98.3 F 70 16 160/93 H 95 07/27/20 18:31 97.9 F 94 20 166/104 H 96 - My Orders Last 24 Hours: My Active Orders 07/27/20 18:19 EKG Documentation Completion [RC] ASDIRECTED EKG 12 Lead [EK] Stat - Assessment/Plan Last 24 Hours: My Active Orders 07/27/20 18:19 EKG Documentation Completion [RC] ASDIRECTED EKG 12 Lead [EK] Stat Assessment:: Bronchitis COPD exacerbation Normal troponin and EKG Plan: 1. Continue prescribed medications for bronchitis 2. Add DuoNeb and albuterol nebulizers. 3. Recommend follow-up with your primary care if you do not feel your symptoms are improving significantly with the steroids and nebulized treatments.
[2020-07-27] MEDS ORDERED: Albuterol/Ipratropium 3.0-0.5 MG/3 ML Neb Soln NEB PRN (20:10)
== END 2020-07-27 20:32 | disposition home or self-care (01) ==
LOC: KA.ED 17:44
DX: J44.1 Chronic obstructive pulmonary disease with (acute) exacerbation (principal); E78.00 Pure hypercholesterolemia, unspecified; J44.9 Chronic obstructive pulmonary disease, unspecified; F17.210 Nicotine dependence, cigarettes, uncomplicated; M19.90 Unspecified osteoarthritis, unspecified site; G62.9 Polyneuropathy, unspecified; F32.9 Major depressive disorder, single episode, unspecified; F41.9 Anxiety disorder, unspecified; Z79.82 Long term (current) use of aspirin; Z79.899 Other long term (current) drug therapy; Z91.013 Allergy to seafood; Z88.1 Allergy status to other antibiotic agents; Z88.5 Allergy status to narcotic agent; Z88.2 Allergy status to sulfonamides
CPT/HCPCS: 36415; 71045; 80053; 84484; 85025; 94640; 99284; 99285-25; J7620-GY

== ENCOUNTER 2022-08-06 13:57 | Emergency (ER) | payer MEDICARE, MEDICAID ==
[2022-08-06 15:26] LABS: ANION GAP 12.1 mmol/L (5-15)
[2022-08-06 15:46] LABS: RESPIRATORY SYNCYTIAL VIR NAA POSITIVE (NEGATIVE)
[2022-08-06 15:48] LABS: CORONAVIRUS COVID-19 NAA NEGATIVE (NEGATIVE)
== END 2022-08-06 16:55 | disposition home or self-care (01) ==
LOC: KA.ED 13:57
DX: J20.5 Acute bronchitis due to respiratory syncytial virus (principal); J44.9 Chronic obstructive pulmonary disease, unspecified; E78.00 Pure hypercholesterolemia, unspecified; Z88.5 Allergy status to narcotic agent; Z88.2 Allergy status to sulfonamides; Z88.8 Allergy status to other drugs, medicaments and biological substances; Z79.82 Long term (current) use of aspirin; Z79.899 Other long term (current) drug therapy; Z90.710 Acquired absence of both cervix and uterus; Z20.822 Contact with and (suspected) exposure to COVID-19
CPT/HCPCS: 0241U; 71046; 80053; 81001; 84484; 85025; 93005; 93010; 99284

== ENCOUNTER 2022-12-15 15:50 | Emergency (ER) | payer MEDICARE, MEDICAID ==
[2022-12-15] MEDS ORDERED: HYDROmorphone 1 MG/ML Syringe IM ONE ×2 (16:34→17:47)
[2022-12-15] MEDS: HYDROmorphone 1 MG/ML Syringe IVPUSH ONE ×2 (16:42→16:45)
[2022-12-15] MEDS ORDERED: Acetaminophen/HYDROcodone 325-5 MG Tab PO PRN (18:09)
== END 2022-12-15 18:33 | disposition home or self-care (01) ==
LOC: KA.ED 15:50
DX: S22.31XA Fracture of one rib, right side, initial encounter for closed fracture (principal); E78.00 Pure hypercholesterolemia, unspecified; J44.9 Chronic obstructive pulmonary disease, unspecified; F17.200 Nicotine dependence, unspecified, uncomplicated; Z88.5 Allergy status to narcotic agent; Z88.2 Allergy status to sulfonamides; Z91.048 Other nonmedicinal substance allergy status; Z88.1 Allergy status to other antibiotic agents; Z79.899 Other long term (current) drug therapy; W22.8XXA Striking against or struck by other objects, initial encounter
CPT/HCPCS: 71101; 96372; 99283; A9270; J1170

== ENCOUNTER 2024-02-03 13:04 | Day surgery (SDC) | payer MEDICAID, MEDICARE ==
[2024-02-03] MEDS: Lactated Ringers 1,000 ML IV SCH (13:30)
[2024-02-03] MEDS ORDERED: Sodium Chloride 0.9% 10 ML Syringe FLUSH PRN (14:00)
[2024-02-03] MEDS ORDERED: Propofol 200 MG/20 ML SDV ONE (14:06)
[2024-02-03] MEDS ORDERED: Midazolam 1 MG/ML 2 ML SDV ONE (14:06)
== END 2024-02-03 16:03 | disposition home or self-care (01) ==
LOC: KA.SDS 13:04
PROVIDERS: ATTEND Family Medicine
DX: Z12.11 Encounter for screening for malignant neoplasm of colon (principal); D12.0 Benign neoplasm of cecum; K63.5 Polyp of colon; K57.30 Diverticulosis of large intestine without perforation or abscess without bleeding; K64.8 Other hemorrhoids; Z85.038 Personal history of other malignant neoplasm of large intestine; Z86.010 Personal history of colon polyps; F33.1 Major depressive disorder, recurrent, moderate; F41.1 Generalized anxiety disorder; J44.9 Chronic obstructive pulmonary disease, unspecified; I73.9 Peripheral vascular disease, unspecified; M81.0 Age-related osteoporosis without current pathological fracture; F17.210 Nicotine dependence, cigarettes, uncomplicated; Z79.82 Long term (current) use of aspirin; Z79.899 Other long term (current) drug therapy; Z88.5 Allergy status to narcotic agent; Z88.2 Allergy status to sulfonamides
CPT/HCPCS: 00811; J2250; J2704; J7120

== ENCOUNTER 2025-01-02 13:00 | Emergency (ER) | payer OTHER ==
[2025-01-02] MEDS: Ketorolac 30 MG/ML SDV IM ONE (14:06)
[2025-01-02] MEDS: Lidocaine 2% Jelly 5 ML Tube MUCMEM SCH (14:12)
== END 2025-01-02 15:00 | disposition home or self-care (01) ==
LOC: KA.ED 13:00
DX: S02.2XXA Fracture of nasal bones, initial encounter for closed fracture (principal); S16.1XXA Strain of muscle, fascia and tendon at neck level, initial encounter; S00.83XA Contusion of other part of head, initial encounter; S60.222A Contusion of left hand, initial encounter; E78.00 Pure hypercholesterolemia, unspecified; J44.9 Chronic obstructive pulmonary disease, unspecified; M19.90 Unspecified osteoarthritis, unspecified site; F17.200 Nicotine dependence, unspecified, uncomplicated; Z86.16 Personal history of COVID-19; Z90.710 Acquired absence of both cervix and uterus; Z88.5 Allergy status to narcotic agent; Z88.2 Allergy status to sulfonamides; Z88.8 Allergy status to other drugs, medicaments and biological substances; Z79.51 Long term (current) use of inhaled steroids; Z79.82 Long term (current) use of aspirin; Z79.899 Other long term (current) drug therapy; W19.XXXA Unspecified fall, initial encounter
CPT/HCPCS: 70450; 70486; 72125; 73130-LT; 96372; 99283; 99284; A9270-GY; J1885